=== PATIENT | male | born 1935 | race Caucasian/White ===

== ENCOUNTER 2016-12-10 10:41 | Observation (INO) | payer OTHER ==
--- NOTE | ~2016-12-10 | DS ---
Discharge Summary [facility] [address] [place]. [address] NAME: ERIK HERNANDEZ : 37 STATUS : DIS Nilda PAT#: [id number] AGE: 81 ADM/REG DATE : 12/10/16 MR#: [id number] REPORT SERV DATE: 12/12/16 DICTATED BY: JR. DUTTON WILLIAM JOHN DATE: 12/11/16 REPORT STATUS : Draft TRANSCRIBED BY: BETH DATE: 12/11/16 ADMISSION DATE: 12/10/2016 DISCHARGE DATE: 12/11/2016 DISCHARGE DIAGNOSES: 1. 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 2. Coagulopathy. 3. History of skin cancer. OPERATIONS/PROCEDURES AND TREATMENTS: Include: CT angiogram of the chest done 12/10/2016 which showed extensive bilateral pulmonary emboli involving the distal main pulmonary arteries extending into the upper middle and lower lobe pulmonary arteries. No significant lung infiltrates were present. DISCHARGE MEDICATIONS: Include: 1. Apixaban 10 mg orally twice a day for seven days, then 5 mg orally twice a day. 2. Aspirin 81 mg orally daily. 3. Lipitor 40 mg orally daily. 4. Artificial Tears four times a day. 5. Vitamin D3 of 1000 units daily. 6. Proscar 5 mg daily. 7. Evoxac 30 mg orally three times a day. 8. Flonase nasal spray one spray twice a day. 9. Burkett-3 fatty acid 1000 mg daily. 10.Omeprazole 20 mg daily. 11.MiraLAX one packet daily. 12.Artificial saliva twice a day. HOSPITAL COURSE: The patient is an 81-year-old white male with known history of right lower extremity deep vein thrombosis with pulmonary embolism. He is on Pradaxa for one year. He stopped taking Pradaxa in August because he wanted to stop taking and he then developed shortness of breath past three to five days. Still walks one to two miles a day, becomes fatigued more easily, and came to the emergency room for further help. In the emergency room, the patient's vital signs were stable with a blood pressure of 125/70, heart rate 76, respiratory rate 12, and saturation 94% on room air. Exam was overall unremarkable. CT pulmonary angiogram as detailed above showing extensive bilateral pulmonary emboli. The patient was absolutely adamant that he wanted to go home. Unfortunately, Pradaxa requires a bridging therapy which was not possible to be done quickly. Therefore, it was discussed that the patient could be placed on Eliquis which does not require bridging therapy. The patient was transferred to the clinical decision unit and observed. Unfortunately, the [facility] does not cover for Eliquis. The patient became quite combative regarding the medications and his desire to go home. Eventually, the patient contacted the [facility] who instructed him to go ahead and do 30 days of Eliquis which is provided free through the company and to follow up at the [facility] within the next three weeks and they would switch [facility] something on the [facility] formulary. I discussed with the patient the importance of keeping this plan and to never in his life be off blood thinners except for medical emergencies or surgeries again. The Discharge Summary [address] [place]. [address] NAME: ERIK HERNANDEZ : 37 STATUS : DIS Nilda PAT#: [id number] AGE: 81 ADM/REG DATE : 12/10/16 MR#: [id number] REPORT SERV DATE: 12/12/16 DICTATED BY: JR. DUTTON WILLIAM JOHN DATE: 12/11/16 REPORT STATUS : Draft TRANSCRIBED BY: BETH DATE: 12/11/16 patient understands this and agrees to follow up with his provider at the [facility], [facility] in [facility] in the next three weeks. For discharge exam and laboratory, please see daily progress note. DISCHARGE DIET: Regular. ACTIVITY: No strenuous activity for the next few days. WMONIKA/BETH Adilson Dutton Jr, MD / [id number] CC: Adilson Dutton Jr, MD Tina Fox
--- NOTE | ~2016-12-10 | HP ---
History And Physical [address] [address] NAME: ERIK HERNANDEZ : 37 STATUS : ADM Nilda PAT#: [id number] AGE: 81 ADM/REG DATE : 12/10/16 MR#: [id number] REPORT SERV DATE: 12/10/16 DICTATED BY: MAURICIO STEPHENS DATE: 12/10/16 REPORT STATUS : Draft TRANSCRIBED BY: MODL DATE: 12/10/16 DATE OF ADMISSION: 12/10/2016 EXAMINING PHYSICIAN: Mauricio Stephens M.D. REASON FOR ADMISSION: Bilateral pulmonary embolism. HISTORY OF PRESENT ILLNESS: This is an 81-year-old white male, who has a known history of DVT right lower extremity, embolized to the lung. He was on Pradaxa for a year from the [place]. He stopped taking the Pradaxa in August just because he wanted to stop taking it and began having shortness of breath the last 3 to 5 days. He still walks about a mile to 2 miles a day at [facility], however, he became more fatigued today. He called the [facility] and they told him to come to the emergency room here. In the emergency room, he was evaluated by Dr. Piyush Schwartz. Dr. Schwartz was begun to start him on heparin, though the patient says he wants to go home today. PAST MEDICAL HISTORY: HOME MEDICATIONS: His home medication include the following: Artificial Tears one four times a day for dry eyes and dry mouth, aspirin 81 mg p.o. daily, atorvastatin 40 mg p.o. daily, Evoxac 30 mg tablet p.o. three times a day, vitamin D3 1000 units p.o. daily, Pradaxa 150 mg p.o. b.i.d. though he stopped that in August, Proscar 5 mg p.o. daily, fluticasone nasal spray 1 a day, meloxicam 15 mg p.o. daily, fish oil one a day, omeprazole 20 mg p.o. daily, MiraLAX one packet daily, saw palmetto caps 1 a day, sodium chloride nasal spray, artificial saliva, capsaicin cream, Prevagen tablet. ALLERGIES: NONE ARE KNOWN. HE DOES HAVE A HISTORY OF DECREASED HEARING. HE HAS TO HAVE AMPLIFICATION. HE RUINED HIS HEARING IN [place] WITH THE [employer]. SOCIAL HISTORY: He is , left him about 12 years ago. He lives by himself on top of [address] in [place]. He does not smoke cigarettes or take any alcohol. Does attend [employer]. He left [employer] after 20 years, lost his hearing, has service-connected hearing disability. He does not smoke cigarettes or take any alcohol. FAMILY HISTORY: He has three boys who are alive and well. No particular disease run in the family that he is aware of. REVIEW OF SYSTEMS: He had no chest pain or shortness of breath. He does have some fatigue. He did get somewhat dyspneic with exertion yesterday though slept very well through the night and had no abnormal indications of something wrong. His legs did not swell. He has no heat in his lower extremities. No melena, hematemesis, fits, seizures, convulsions, unilateral weakness, nausea, vomiting, or diarrhea. History And Physical [address] [address] NAME: ERIK HERNANDEZ : 37 STATUS : ADM Nilda PAT#: [id number] AGE: 81 ADM/REG DATE : 12/10/16 MR#: [id number] REPORT SERV DATE: 12/10/16 DICTATED BY: MAURICIO STEPHENS DATE: 12/10/16 REPORT STATUS : Draft TRANSCRIBED BY: BETH DATE: 12/10/16 The remainder of the review of system negative. PHYSICAL EXAMINATION: GENERAL: Older white male in no acute distress. Very hard of hearing. VITAL SIGNS: His blood pressure 125/70 with a heart rate of 76, respiratory rate 12, oxygen saturation 94% when he arrived. HEENT: EOMI. Sclerae clear. Conjunctivae pink. NECK: No bruit without any JVD. CHEST: Clear to A and P. HEART: Regular S1, S2 without murmur, gallop, or click. ABDOMEN: Soft, obese, nontender. Bowel sounds are positive. No HSM. EXTREMITIES: Showed no edema. Distal pulses intact to the dorsalis pedis, posterior tibial NEUROLOGIC: He withdraws to plantar stimulation. Forepart Reducer equal and symmetric bilaterally. Coordination intact. He has no tremor. He has had remarkable decreased hearing bilaterally. SKIN: Without rash, ecchymosis, or bruising. LYMPHATICS: Adenopathy, none is palpable. LABORATORY DATA: CT of the chest done earlier shows extensive bilateral pulmonary emboli involving the distal main pulmonary artery extending to the upper and middle lobe, pulmonary arteries with no significant lung infiltrates present. The BNP was 37. His BMP showed a sodium 142, potassium 4.4, creatinine 1.01. BUN 18, glucose 104, troponin less than 0.03. His hemoglobin 16.2, hematocrit 46.7, white count 6.3, platelets 146, INR is 1.1. ASSESSMENT: 1. Bilateral pulmonary emboli secondary to noncompliance with Pradaxa. We will start Eliquis as Pradaxa requires IV anticoagulation first. 2. History of deep vein thrombosis, now recurrent. We will need lifelong anticoagulation therapy. 3. Coagulopathy, quit Pradaxa about three months ago. 4. History of skin cancers, right eye and right ear. 5. Hearing loss secondary to noise exposure from [employer]. PLAN: He wants to go home. The only way I can figure that this could happen would be if he goes with oral Eliquis. We will start Eliquis 10 mg p.o. b.i.d. for 7 days then 5 mg p.o. b.i.d. [facility] after the initial dosing, and we can follow up with them. We will put him on observation. Check to make sure his oxygen saturation is satisfactory prior to discharging him home. DB/MODL Mauricio Stephens M.D. History And Physical [address] [address] NAME: ERIK HERNANDEZ : 37 STATUS : ADM Nilda PAT#: [id number] AGE: 81 ADM/REG DATE : 12/10/16 MR#: [id number] REPORT SERV DATE: 12/10/16 DICTATED BY: MAURICIO STEPHENS DATE: 12/10/16 REPORT STATUS : Draft TRANSCRIBED BY: MODL DATE: 12/10/16 / [id number] CC: Adilson Dutton Jr, MD
[2016-12-10 11:56] LABS: BASOPHILS ABSOLUTE 0.06 10/3/uL (0.0-0.16); EOSINOPHILS 2.2 %; EOSINOPHILS ABSOLUTE 0.14 10/3/uL (0.0-0.53); ER CBC TAT 0 Hrs 07 Mins; HEMATOCRIT 46.7 % (40.0-51.0); HEMOGLOBIN 16.2 g/dL (13.6-17.8); IMMATURE GRANULOCYTES 0.3 %; IMMATURE GRANULOCYTES ABSOLUTE 0.02 10/3/uL (0.0-0.11); LYMPHOCYTES ABSOLUTE 1.32 10/3/uL (0.67-4.30); MEAN CORPUS HGB CONC 34.7 g/dL (32.0-36.0); MEAN CORPUSCULAR HEMOGLOB 30.4 pg (26.0-34.0); MEAN CORPUSCULAR VOLUME 87.6 fL (80-100); MEAN PLATELET VOLUME 9.7 fL (9.2-13.0); MONOCYTES ABSOLUTE 0.69 10/3/uL (0.21-1.20); NEUTROPHILS 64.5 %; NEUTROPHILS ABSOLUTE 4.07 10/3/uL (2.02-8.40); PLATELET COUNT 146 10/3/uL (150-400); RBC DISTRIBUTION WIDTH 13.4 % (12.0-16.0); RED CELL COUNT 5.33 10/6/uL (4.7-6.1); WHITE BLOOD CELLS 6.3 10/3/uL (4.5-10.5)
[2016-12-10 11:58] LABS: MANUAL DIFF NO %
[2016-12-10 12:03] LABS: INTERNATIONAL NORMAL RATI 1.1 UNITS (-); PROTIME (NOT ORD) 14.3 SEC (12.0-14.5)
[2016-12-10 12:13] LABS: BUN (BLOOD UREA NITROGEN) 18 MG/DL (6-23); CHEST PAIN PROFILE TAT 0 Hrs 24 Mins; CHLORIDE, SERUM 106 MMOL/L (96-112); CO2 (CARBON DIOXIDE) 27 MMOL/L (24-34); CREATININE 1.01 MG/DL (0.70-1.30); GFR AFRICAN AMERICAN 81 ML/MIN (>=60); GFR NON AFRICAN AMERICAN 70 ML/MIN (>=60); GLUCOSE, SERUM 104 MG/DL (60-99); POTASSIUM, SERUM 4.4 MMOL/L (3.5-5.3); SODIUM, SERUM 142 MMOL/L (135-148); TROPONIN I 0.03 NG/ML (<0.05)
[2016-12-10] MEDS ORDERED: ARTIFICIAL SALIVA PO (13:12)
[2016-12-10] MEDS ORDERED: LIPITOR40 PO (13:12)
[2016-12-10] MEDS ORDERED: ASAB PO (13:12)
[2016-12-10] MEDS ORDERED: CAPSAICIN CREAM TOP (13:13)
[2016-12-10] MEDS ORDERED: PRADAXA150 MG PO (13:14)
[2016-12-10] MEDS ORDERED: VITAMIN D31000 UNIT PO (13:14)
[2016-12-10] MEDS ORDERED: PROSCAR5 PO (13:15)
[2016-12-10] MEDS ORDERED: MOBIC15 MG PO (13:15)
[2016-12-10] MEDS ORDERED: PRILO PO (13:16)
[2016-12-10] MEDS ORDERED: MIRALAX POWDER1 PKT PO (13:16)
[2016-12-10] MEDS ORDERED: FLONASE NAS (13:17)
[2016-12-10] MEDS ORDERED: EVOXAC30 MG PO (13:17)
[2016-12-10] MEDS ORDERED: OCEAN NAS (13:18)
[2016-12-10] MEDS ORDERED: LUBRIFRESH OPH (13:18)
[2016-12-10] MEDS ORDERED: PREVAGEN PO (13:19)
[2016-12-10] MEDS ORDERED: SAW PALMETT2 PO (13:19)
[2016-12-10] MEDS ORDERED: FISH-EPA1000 MG PO (13:19)
[2016-12-11 03:12] LABS: BASOPHILS 0.8 %; BASOPHILS ABSOLUTE 0.05 10/3/uL (0.0-0.16); EOSINOPHILS 4.2 %; EOSINOPHILS ABSOLUTE 0.27 10/3/uL (0.0-0.53); HEMATOCRIT 44.4 % (40.0-51.0); HEMOGLOBIN 15.2 g/dL (13.6-17.8); IMMATURE GRANULOCYTES 0.2 %; IMMATURE GRANULOCYTES ABSOLUTE 0.01 10/3/uL (0.0-0.11); LYMPHOCYTES 27.5 %; LYMPHOCYTES ABSOLUTE 1.77 10/3/uL (0.67-4.30); MEAN CORPUS HGB CONC 34.2 g/dL (32.0-36.0); MEAN CORPUSCULAR HEMOGLOB 30.1 pg (26.0-34.0); MEAN CORPUSCULAR VOLUME 87.9 fL (80-100); MONOCYTES 12.6 %; MONOCYTES ABSOLUTE 0.81 10/3/uL (0.21-1.20); NEUTROPHILS 54.7 %; NEUTROPHILS ABSOLUTE 3.53 10/3/uL (2.02-8.40); PLATELET COUNT 155 10/3/uL (150-400); RBC DISTRIBUTION WIDTH 13.4 % (12.0-16.0); RED CELL COUNT 5.05 10/6/uL (4.7-6.1); WHITE BLOOD CELLS 6.4 10/3/uL (4.5-10.5)
[2016-12-11 03:19] LABS: MANUAL DIFF NO %
[2016-12-11] MEDS ORDERED: ELIQUIS 5 MG TAB5 MG PO ×2 (14:42→14:50)
== END 2016-12-11 15:37 | disposition home or self-care (01) ==
LOC: ER 10:41 → CDU1 15:31 → CDU2 15:34
PROVIDERS: Emergency Medicine; Internal Medicine
DX: I26.99 Other pulmonary embolism without acute cor pulmonale (principal); D68.9 Coagulation defect, unspecified; K21.9 Gastro-esophageal reflux disease without esophagitis; Z86.718 Personal history of other venous thrombosis and embolism; E78.00 Pure hypercholesterolemia, unspecified; H91.90 Unspecified hearing loss, unspecified ear; Z85.828 Personal history of other malignant neoplasm of skin; Z88.6 Allergy status to analgesic agent; Z79.82 Long term (current) use of aspirin; Z88.8 Allergy status to other drugs, medicaments and biological substances
CPT/HCPCS: 71275; 80048; 81001; 83735; 83880; 84484; 85025; 85610; 85730; 93005; 96372; 99285; A9270-GY; G0378; Q9967